=== PATIENT | female | born 1980 | race Caucasian/White ===

== ENCOUNTER 2019-04-01 19:52 | Emergency (ER) | payer MEDICAID ==
[~2019-04-01] VITALS: Ht 167.6 cm; Wt 127.0 kg
[2019-04-01 20:09] VITALS: Ht 167.6 cm; Wt 127.0 kg
[2019-04-01] MEDS ORDERED: CLEOCIN HCL300 MG PO (20:48)
[2019-04-01 21:30] VITALS: BP 149/82
== END 2019-04-01 21:30 | disposition home or self-care (01) ==
LOC: D.ER 19:52
DX: L03.115 Cellulitis of right lower limb (principal)

== ENCOUNTER 2019-06-05 15:37 | Emergency (ER) | payer BC ==
[~2019-06-05] VITALS: Ht 167.6 cm; Wt 130.0 kg
[~2019-06-05 15:37] MED LIST: CLEOCIN HCL300 MG PO
[2019-06-05 15:55] VITALS: Ht 167.6 cm; Wt 130.0 kg
[2019-06-05] MEDS ORDERED: VOLTAREN75 MG PO (19:57)
[2019-06-05] MEDS ORDERED: CLEOCIN HCL300 MG PO (19:57)
[2019-06-05 20:28] VITALS: BP 125/86
== END 2019-06-05 20:28 | disposition home or self-care (01) ==
LOC: D.ER 15:37
DX: N61.0 Mastitis without abscess (principal)